=== PATIENT | female | born 1990 | race African-American/Black ===

== ENCOUNTER 2023-09-07 12:05 | Emergency (ER) | payer OTHER, SELFPAY ==
[2023-09-07] MEDS ORDERED: predniSONE 20 MG TAB ONE (12:34)
[2023-09-07 13:06] LABS: SARS-CoV-2 NAA Rapid Test Not Detected (NotDetected)
== END 2023-09-07 13:42 | disposition home or self-care (01) ==
LOC: ERS 12:05
DX: B34.9 Viral infection, unspecified (principal); E11.9 Type 2 diabetes mellitus without complications; Z79.84 Long term (current) use of oral hypoglycemic drugs
CPT/HCPCS: 87081; 87430; 99283; J7512